=== PATIENT | female | born 1995 ===

== ENCOUNTER 2018-09-06 03:52 | Emergency (ER) | payer SELFPAY ==
[2018-09-06 04:19] VITALS: RESP 20; O2SAT 100
--- NOTE | 2018-09-06 04:46 | C.PDOC ---
History Of Present Illness 32 year old female with no significant PMHx presents to the ED for evaluation. Patient reports that today after waking up from sleep, she felt shaky and her legs gave out. Patient fell to the ground, patient state she felt weak and s tarted having chills. Patient injured her left middle finger when she fell down. Patient reports she feels better now. Patient denies LOC, headache, visual changes, nausea, vomit, weakness, numbness, back pain. Time Seen by Provider: 09/06/18 04:31 Chief Complaint (Nursing): Upper Extremity Problem/Injury History Per: Patient History/Exam Limitations: no limitations Onset/Duration Of Symptoms: Hrs (03:00) Current Symptoms Are (Timing): Still Present Quality: "Pain" Recent travel outside of the [place]: No Additional History Per: Patient Past Medical History Reviewed: Historical Data, Nursing Documentation, Vital Signs Vital Signs: Last Vital Signs Temp 98.9 F 09/06/18 04:04 Pulse 76 09/06/18 04:04 Resp 20 09/06/18 04:04 BP 112/73 09/06/18 04:04 Pulse Ox 100 09/06/18 04:04 - Medical History PMH: No Chronic Diseases Surgical History: No Surg Hx Family History: States: Unknown Family Hx - Social History Hx Alcohol Use: No Hx Substance Use: No - Immunization History Hx Tetanus Toxoid Vaccination: No Hx Influenza Vaccination: No Hx Pneumococcal Vaccination: No Review Of Systems Constitutional: Negative for: Fever, Chills Eyes: Negative for: Vision Change Cardiovascular: Negative for: Chest Pain, Palpitations Respiratory: Negative for: Shortness of Breath Gastrointestinal: Negative for: Nausea, Vomiting Skin: Negative for: Rash Neurological: Positive for: Weakness. Negative for: Headache, Dizziness Physical Exam - Physical Exam Appears: Non-toxic, No Acute Distress Skin: Normal Color, Warm, Dry Head: Atraumatic, Normacephalic Eye(s): bilateral: Normal Inspection, PERRL, EOMI Neck: Normal ROM, Supple Chest: Symmetrical Cardiovascular: Rhythm Regular Respiratory: Normal Breath Sounds, No Rales, No Rhonchi, No Wheezing Extremity: Normal ROM, No Tenderness, Capillary Refill (< 2 seconds), No Swelling Pulses: Left Radial: Normal, Right Radial: Normal Neurological/Psych: Oriented x3, Normal Speech, Normal Cognition, Normal Motor, Normal Sensation, Other (no focal deficits) Gait: Steady ED Course And Treatment - Laboratory Results Result Diagrams: 09/06/18 05:20 09/06/18 05:20 ECG: Interpreted By Me, Viewed By Me ECG Rhythm: Sinus Rhythm Rate From EC (BPM) O2 Sat by Pulse Oximetry: 100 (ON RA) Pulse Ox Interpretation: Normal - Radiology CXR: Interpreted by Me, Viewed By Me CXR Interpretation: Yes: No Acute Disease. No: Infiltrates - CT Scan/US CT head Other Rad Studies (CT/US): Read By Radiologist, Radiology Report Reviewed CT/US Interpretation: CT SCAN OF THE BRAIN WITHOUT IV CONTRAST. CLINICAL INDICATION: Weakness. TECHNIQUE: Axial images of the brain obtained without IV contrast administration. FINDINGS: Normal size of the ventricles and extra- axial spaces for the patient's age. Normal white matter tracts of the supratentorial brain. Normal basal ganglia and thalami. Normal brainstem. Normal cerebellum. There is no demonstrated extra-axial, intraparenchymal, or intraventricular hemorrhage. There are no findings of an acute ischemic infarction. Normal calvarium. There is no demonstrated fracture. Normal soft tissue structures. Air-fluid level in the left maxillary sinus. Mild chronic mucosal inflammatory changes in the ethmoid air cells. Normal remaining visuali zed paranasal sinuses. IMPRESSION: Normal unenhanced CT scan of the brain. Air-fluid level in the left maxillary sinus. Sinusitis. Acute on top of chronic. Mild chronic mucosal inflammatory changes in the ethmoid air cells. . Electronically signed on Sep 06, 2018 5:21:54 AM EST by: Olivia Lu M.D., Certified by ABR, MSK, Neuroradiology Reevaluation Time: 06:02 Reassessment Condition: Unchanged (NO RECUR SINCE INITIAL EVAL. VSS) Medical Decision Making Medical Decision Making: Plan: * CT head * EKG * CXR * Labs Disposition Counseled Patient/Family Regarding: Studies Performed, Diagnosis, Need For Followup - Disposition Referrals: [facility] [Outside] [facility] [Outside] Disposition: HOME/ ROUTINE Disposition Time: 06:03 Condition: IMPROVED Instructions: Generalized Weakness (DC), Weakness (ED) Forms: [facility] (Persian), Work Excuse - Clinical Impression Clinical Impression: Finger sprain, Weakness - Scribe Statement The provider has reviewed the documentation as recorded by the Scribe Gurmeet Saha All medical record entries made by the Rosieibbrionna were at my direction and personally dictated by me. I have reviewed the chart and agree that the record accurately reflects my personal performance of the history, physical exam, medical decision making, and the department course for this patient. I have also personally directed, reviewed, and agree with the discharge instructions and disposition.
[2018-09-06 05:26] LABS: BASO % 0.4 % (0.0-2.0); EOS # 0.1 K/uL (0.0-0.7); EOS % 0.8 % (0.0-4.0); HEMOGLOBIN 13.6 g/dL (11.0-16.0); LYMPH # 2.3 K/uL (1.0-4.3); LYMPH % 24.4 % (20.0-40.0); MEAN CELL VOLUME 87.6 fL (81.0-99.0); MEAN CORPUSCULAR HEMOGLOBIN 29.5 pg (27.0-31.0); MEAN CORPUSCULAR HGB CONC 33.7 g/dL (33.0-37.0); MEAN PLATELET VOLUME 8.6 fL (7.2-11.7); MONO # 0.7 K/uL (0.0-0.8); MONO % 7.4 % (0.0-10.0); NEUT # 6.2 K/uL (1.8-7.0); NRBC % 0.1 % (0.0-2.0); RBC 4.62 Mil/uL (3.80-5.20); RED CELL DISTRIBUTION WIDTH 12.6 % (11.5-14.5); WHITE BLOOD COUNT 9.3 K/uL (4.8-10.8)
[2018-09-06 05:48] LABS: BLOOD UREA NITROGEN 10 mg/dL (7-17); CALCIUM 9.1 mg/dl (8.6-10.4); GFR NON-AFRICAN AMERICAN > 60
[2018-09-06 06:19] VITALS: BP 108/66; PULSE 82; TEMP 99
--- NOTE | 2018-09-06 08:37 | RAD ---
Date of service: 09/06/2018 HISTORY: Weakness COMPARISON: No prior. TECHNIQUE: Chest PA and lateral FINDINGS: LINES AND TUBES: None. LUNG AND PLEURA: The lungs are well inflated and clear. No pleural effusion or pneumothorax. HEART AND MEDIASTINUM: The heart is not enlarged. No aortic atherosclerotic calcification present. The hilar and mediastinal contours are within normal limits. SKELETAL STRUCTURES: The bony structures are within normal limits for the patient's age. VISUALIZED UPPER ABDOMEN: Normal. OTHER FINDINGS: None. IMPRESSION: No active pulmonary disease.
--- NOTE | 2018-09-06 09:12 | CT ---
Date of service: 09/06/2018 PROCEDURE: CT HEAD WITHOUT CONTRAST. HISTORY: Weakness COMPARISON: None available. TECHNIQUE: Axial computed tomography images were obtained through the head/brain without intravenous contrast. Radiation dose: Total exam DLP = 1039.02 mGy-cm. This CT exam was performed using one or more of the following dose reduction techniques: Automated exposure control, adjustment of the mA and/or kV according to patient size, and/or use of iterative reconstruction technique. FINDINGS: HEMORRHAGE: No intracranial hemorrhage. BRAIN: Chen-white matter differentiation is preserved. There is no mass, mass effect or abnormal extra-axial fluid collection. There is no territorial infarction. The midline sagittal structures are normal. VENTRICLES: The ventricles are normal in size, shape and configuration. CALVARIUM: There is no calvarial fracture or extracranial soft tissue swelling. PARANASAL SINUSES: There is abnormal soft-tissue with central high attenuation nearly completely opacifying the left maxillary sinus with fluid and aerosolized secretions. There is associated osteoneogenesis. There is mild scattered left ethmoid sinusitis the remaining included paranasal sinuses are predominantly clear MASTOID AIR CELLS: Predominantly clear. OTHER FINDINGS: None. IMPRESSION: No acute intracranial abnormality. Acute and/or chronic left maxillary sinusitis. Clinical follow-up is advised. A preliminary report was provided by [facility].
--- NOTE | 2018-09-09 14:11 | CARD ---
APPROVED REPORT Date of service: 09/06/2018 EKG Measurement Heart [id number] <Conclusion> Normal sinus rhythm with sinus arrhythmia Normal ECG
== END 2018-09-06 06:18 | disposition home or self-care (01) ==
LOC: C.ER 03:52 → EDBD 03:52 → C.ER 06:18
DX: R53.1 Weakness (principal); S63.613A Unspecified sprain of left middle finger, initial encounter; W19.XXXA Unspecified fall, initial encounter